=== PATIENT | female | born 2000 | race Two or more races ===

== ENCOUNTER 2019-02-08 22:26 | Emergency (ER) | payer SELFPAY ==
[~2019-02-08] VITALS: Ht 162.6 cm; Wt 93.2 kg
[2019-02-08 22:52] LABS: URINE HCG NEGATIVE (NEG)
[2019-02-08 23:01] LABS: CLARITY,URINE CLEAR (Clear); COLOR,URINE ORANGE (Yellow)
[2019-02-08 23:06] LABS: UA COLLECTION TYPE CLN CATCH MIDSTREAM
[2019-02-08 23:08] LABS: BACTERIA,URINE 1+ /HPF (Neg); MUCUS STRANDS NONE SEEN /LPF (Neg); RENAL CELLS, URINE FEW /HPF; SQUAMOUS EPITHELIAL CELL,UR MODERATE /LPF (FEW); TRANSITIONAL EPI CELLS,URINE FEW /HPF
[2019-02-08] MEDS ORDERED: SULF1TAB49 PO (23:45)
[2019-02-09 00:01] VITALS: BP 116/73
== END 2019-02-09 00:03 | disposition home or self-care (01) ==
LOC: ER 22:27
DX: N39.0 Urinary tract infection, site not specified (principal); Z79.899 Other long term (current) drug therapy
CPT/HCPCS: 81001; 81025; 87077; 87088; 87186; 99283

== ENCOUNTER 2019-10-03 12:39 | Emergency (ER) | payer MEDICAID ==
[~2019-10-03] VITALS: Ht 162.6 cm; Wt 80.0 kg
[2019-10-03 12:44] VITALS: BP 116/73
[2019-10-03] MEDS ORDERED: ALPRAZolam 0.25mg tablet PO ONE (14:25)
== END 2019-10-03 14:34 | disposition home or self-care (01) ==
LOC: ER 12:40
DX: F41.9 Anxiety disorder, unspecified (principal); F32.9 Major depressive disorder, single episode, unspecified; R11.2 Nausea with vomiting, unspecified
CPT/HCPCS: 99283